=== PATIENT | female | born 1990 | race Hispanic/Latino ===

== ENCOUNTER 2024-05-09 16:01 | Emergency (ER) | payer OTHER ==
[~2024-05-09] VITALS: Ht 167.6 cm; Wt 65.1 kg
[~2024-05-09 16:01] MED LIST: PENICILLIN V P500 MG PO
[2024-05-09] MEDS ORDERED: LIDOCAINE 2% (VISCOUS) HCL 15 ML UDC PO ONE (16:15)
[2024-05-09] MEDS ORDERED: LIDOCAINE HCL100 ML MT (16:21)
[2024-05-09 16:30] VITALS: BP 140/96
== END 2024-05-09 16:30 | disposition home or self-care (01) ==
LOC: ED 16:01
DX: K12.0 Recurrent oral aphthae (principal)
CPT/HCPCS: 99283

== ENCOUNTER 2024-10-02 09:09 | Emergency (ER) | payer OTHER ==
[~2024-10-02] VITALS: Ht 167.6 cm; Wt 65.8 kg
[~2024-10-02 09:09] MED LIST changes: +LIDOCAINE HCL100 ML MT
[2024-10-02] MEDS ORDERED: IBUPROFEN 800 MG TAB PO ONE (09:30)
[2024-10-02 10:19] LABS: INFLUENZA B NAA NEGATIVE (NEGATIVE); RESPIRATORY SYNCYTIAL VIR NAA NEGATIVE (NEGATIVE)
[2024-10-02 10:57] VITALS: BP 128/77
== END 2024-10-02 10:59 | disposition home or self-care (01) ==
LOC: ED 09:09
PROVIDERS: Emergency Medicine
DX: J02.9 Acute pharyngitis, unspecified (principal); J06.9 Acute upper respiratory infection, unspecified; Z11.52 Encounter for screening for COVID-19
CPT/HCPCS: 87502; 87651; 99283; A9270; U0002

== ENCOUNTER 2024-11-24 15:36 | Emergency (ER) | payer OTHER ==
[~2024-11-24] VITALS: Ht 167.6 cm; Wt 64.9 kg
[2024-11-24] MEDS ORDERED: KETOROLAC TROMETHAMINE 30 MG/ML VIAL IV ONE (19:45)
[2024-11-24] MEDS ORDERED: diphenhydrAMINE HCL 50 MG/ML VIAL IV ONE (19:45)
[2024-11-24] MEDS ORDERED: SUMAtriptan succinate 6 MG/0.5 ML VIAL SUB-Q ONE (19:45)
[2024-11-24] MEDS ORDERED: LACTATED RINGER'S 1,000 ML IV ONE (19:45)
[2024-11-24] MEDS ORDERED: ondansetron HCL 4 MG/2 ML VIAL IV ONE (19:45)
[2024-11-24 20:55] VITALS: BP 134/93
== END 2024-11-24 20:55 | disposition home or self-care (01) ==
LOC: ED 15:36
DX: G43.909 Migraine, unspecified, not intractable, without status migrainosus (principal); Z79.899 Other long term (current) drug therapy
CPT/HCPCS: 84703; 96374; 96375; 99283-25; J1200; J1885; J2405; J3030; J7121